=== PATIENT | male | born 1990 | race Caucasian/White ===

== ENCOUNTER 2017-08-16 18:51 | Emergency (ER) | payer OTHER ==
[2017-08-16 19:02] VITALS: BP 130/70; PULSE 69; RESP 18; TEMP 97.1
--- NOTE | 2017-08-16 19:16 | ED ---
ENT HPI - General Chief complaint: ENT Stated complaint: left ear pain Time Seen by Provider: 08/16/17 19:04 Source: patient Mode of arrival: ambulatory Limitations: no limitations - History of Present Illness Initial comments: 27-year-old male patient presented to the emergency department today for complaints of left ear discomfort and congestion. Patient states that he has been sick with upper respiratory symptoms for the last 2 days. Patient states that he occasionally gets a sharp pain in his left ear. He states it feels plugged and he has decreased hearing. Patient states he is also having nasal congestion and clear nasal drainage. He denies any sore throat. Denies any fever or chills. Denies any headaches. Patient denies any recent shortness breath, chest pain, abdominal pain, nausea, vomiting, diarrhea, constipation, back pain, numbness, tingling, headache, visual changes, hematuria, dysuria, urinary frequency, urinary urgency, or any other complaints. - Related Data Allergies Allergy/AdvReac Type Severity Reaction Status Date / Time No Known Allergies Allergy Verified 08/16/17 19:02 Review of Systems ROS Statement: Those systems with pertinent positive or pertinent negative responses have been documented in the HPI. ROS Other: All systems not noted in ROS Statement are negative. Past Medical History Past Medical History: No Reported History History of Any Multi-Drug Resistant Organisms: None Reported Past Surgical History: No Surgical Hx Reported Past Psychological History: No Psychological Hx Reported Smoking Status: Never smoker Past Alcohol Use History: None Reported Past Drug Use History: None Reported General Exam Limitations: no limitations General appearance: alert, in no apparent distress, other (This is a well- developed, well-nourished adult male patient in no acute distress. Vital signs upon presentation her temperature 97.1F, pulse 69, respirations 18, blood pressure 130/70, pulse ox 100% on room air.) Eye exam: Present: normal appearance, PERRL, EOMI. Absent: scleral icterus, conjunctival injection, periorbital swelling ENT exam: Present: normal exam, normal oropharynx, mucous membranes moist, TM's normal bilaterally Neck exam: Present: normal inspection. Absent: tenderness, meningismus, lymphadenopathy Respiratory exam: Present: normal lung sounds bilaterally. Absent: respiratory distress, wheezes, rales, rhonchi, stridor Cardiovascular Exam: Present: regular rate, normal rhythm, normal heart sounds. Absent: systolic murmur, diastolic murmur, rubs, gallop, clicks Neurological exam: Present: alert, oriented X3, CN II-XII intact Psychiatric exam: Present: normal affect, normal mood Skin exam: Present: warm, dry, intact, normal color. Absent: rash Course Vital Signs 08/16/17 18:59 Temperature 97.1 F L Pulse Rate 69 Respiratory 18 Rate Blood Pressure 130/70 O2 Sat by Pulse 100 Oximetry Medical Decision Making - Medical Decision Making 27-year-old male patient presented for evaluation of left ear congestion. Physical exam was unremarkable. Left tympanic membranes was within normal limits, no evidence of infection. Vital signs are stable. Did explain to patient this could be due to increased fluid in the middle ear. He is instructed to obtain [id number] nasal decongestant such as Sudafed. He is instructed to follow-up with his primary care physician for recheck in 1-2 days. He is instructed to return here really for any new, worsening, or concerning symptoms. He verbalizes understanding and agrees with this plan. Disposition Clinical Impression: Upper respiratory infection Disposition: HOME SELF-CARE Condition: Good Instructions: Upper Respiratory Infection (ED), Earache (ED) Additional Instructions: Use [id number] nasal decongestants. Example is Sudafed or anything with pseudoephedrine. Follow up with her primary care physician for reevaluation in one to 2 days. Return here immediately for any new, worsening, or concerning symptoms. Referrals: None,Stated [Primary Care Provider] - 1-2 days Time of Disposition: 19:16
== END 2017-08-16 19:23 | disposition home or self-care (01) ==
LOC: EC 18:51
DX: J06.9 Acute upper respiratory infection, unspecified (principal); H92.02 Otalgia, left ear
CPT/HCPCS: 99282

== ENCOUNTER 2019-12-31 17:52 | Emergency (ER) | payer OTHER ==
--- NOTE | 2019-12-31 18:40 | XR ---
EXAMINATION TYPE: XR chest 2V DATE OF EXAM: 12/31/2019 COMPARISON: NONE HISTORY: Cough and congestion TECHNIQUE: 2 views FINDINGS: Heart and mediastinum are normal. Lungs are clear. Diaphragm is normal. Bony thorax appears normal. IMPRESSION: Normal chest.
[2019-12-31 19:05] VITALS: BP 124/75; PULSE 76; TEMP 98.1
--- NOTE | 2019-12-31 19:28 | ED ---
General Adult HPI - General Chief complaint: Upper Respiratory Infection Stated complaint: Chest congestion Time Seen by Provider: 12/31/19 17:55 Source: patient, RN notes reviewed, old records reviewed Mode of arrival: ambulatory Limitations: no limitations - History of Present Illness Initial comments: Is a 29-year-old male who presents emergency Department stating he's had a slight cough since the beginning of the month. The month he had a low-grade fever but he hasn't had one in quite a while. Patient states he has been exposed to influenza he hasn't had a fever lately. Patient denies any significant short of breath. Patient denies any actual sputum production. Patient denies any chest pain. - Related Data Allergies Allergy/AdvReac Type Severity Reaction Status Date / Time No Known Allergies Allergy Verified 08/16/17 19:02 Review of Systems ROS Statement: Those systems with pertinent positive or pertinent negative responses have been documented in the HPI. ROS Other: All systems not noted in ROS Statement are negative. Past Medical History Past Medical History: No Reported History History of Any Multi-Drug Resistant Organisms: None Reported Past Surgical History: No Surgical Hx Reported Past Psychological History: No Psychological Hx Reported Smoking Status: Never smoker Past Alcohol Use History: None Reported Past Drug Use History: None Reported General Exam - General Exam Comments Initial Comments: GENERAL: Patient is well-developed and well-nourished. Patient is nontoxic and well- hydrated and is in no acute distress. ENT: Neck is soft and supple. No significant lymphadenopathy is noted. Oropharynx is clear. Moist mucous membranes. Neck has full range of motion without eliciting any pain. EYES: The sclera were anicteric and conjunctiva were pink and moist. Extraocular movements were intact and pupils were equal round and reactive to light. Eyelids were unremarkable. PULMONARY: Unlabored respirations. Good breath sounds bilaterally. No audible rales rhonchi or wheezing was noted. CARDIOVASCULAR: There is a regular rate and rhythm without any murmurs gallops or rubs. ABDOMEN: Soft and nontender with normal bowel sounds. SKIN: Skin is clear with no lesions or rashes and otherwise unremarkable. NEUROLOGIC: Patient is alert and oriented x3. Cranial nerves II through XII are grossly intact. Motor and sensory are also intact. Normal speech, volume and content. Symmetrical smile. MUSCULOSKELETAL: Normal extremities with adequate strength and full range of motion. LYMPHATICS: No significant lymphadenopathy is noted PSYCHIATRIC: Normal psychiatric evaluation. Limitations: no limitations Course Vital Signs 12/31/19 12/31/19 17:53 19:04 Temperature 98.6 F 98.1 F Pulse Rate 79 76 Respiratory 18 19 Rate Blood Pressure 138/80 124/75 O2 Sat by Pulse 100 99 Oximetry Disposition Clinical Impression: Acute upper respiratory infection Disposition: HOME SELF-CARE Condition: Good Instructions (If sedation given, give patient instructions): Upper Respiratory Infection (ED) Is patient prescribed a controlled substance at d/c from ED?: No Referrals: Lilli Dorsey MD [Primary Care Provider] - 1-2 days Time of Disposition: 19:28
[2019-12-31 19:48] VITALS: RESP 16
== END 2019-12-31 19:40 | disposition home or self-care (01) ==
LOC: EC 17:52
DX: J06.9 Acute upper respiratory infection, unspecified (principal)
CPT/HCPCS: 71046; 99284

== ENCOUNTER 2021-02-01 10:42 | Emergency (ER) | payer OTHER ==
[2021-02-01 11:02] VITALS: BP 106/70; PULSE 71; RESP 18; TEMP 98.2
[2021-02-01] MEDS ORDERED: ACET/COD 300 MG/30 MG STARTER PACK 6 TAB BTL PO STA (11:24)
[2021-02-01] MEDS ORDERED: HYDROcodone/APAP 5-325MG 1 EACH TAB PO STA (11:24)
--- NOTE | 2021-02-01 11:26 | ED ---
Back Pain HPI - General Chief Complaint: Back Pain/Injury Stated Complaint: back injury Time Seen by Provider: 02/01/21 10:59 Source: patient Mode of arrival: ambulatory Limitations: no limitations - History of Present Illness Initial Comments: This a 30-year-old male presents emergency Department chief complaint low back pain. Patient states he is playing with his daughter on the floor yesterday when he twisted to his right and felt hasn't back tighten up. Patient states his pain today worse with movement better at rest. Denies any lower extremity symptoms including paresthesias, weakness, discoloration. He is able to ambulate with no assistance. Patient has a bowel, bladder incontinence or retention of saddle anesthesias. Patient has no abdominal complaints. Patient states he has a history of scoliosis states she's had injuries like this in the past. - Related Data Previous Rx's Medication Instructions Recorded Cyclobenzaprine [Flexeril] 10 mg PO TID PRN #15 tab 02/01/21 Ibuprofen [Motrin] 600 mg PO Q8HR PRN #20 tab 02/01/21 predniSONE 50 mg PO DAILY #5 tab 02/01/21 Allergies Allergy/AdvReac Type Severity Reaction Status Date / Time No Known Allergies Allergy Verified 02/01/21 10:49 Review of Systems ROS Statement: Those systems with pertinent positive or pertinent negative responses have been documented in the HPI. ROS Other: All systems not noted in ROS Statement are negative. Past Medical History Past Medical History: No Reported History History of Any Multi-Drug Resistant Organisms: None Reported Past Surgical History: No Surgical Hx Reported Additional Past Surgical History / Comment(s): esophageal as new born Past Psychological History: No Psychological Hx Reported Smoking Status: Never smoker Past Alcohol Use History: Occasional Past Drug Use History: Marijuana General Exam Limitations: no limitations General appearance: alert, in no apparent distress Head exam: Present: atraumatic, normocephalic, normal inspection Neck exam: Present: normal inspection, full ROM. Absent: tenderness, meningismus, lymphadenopathy Respiratory exam: Present: normal lung sounds bilaterally. Absent: respiratory distress, wheezes, rales, rhonchi, stridor Cardiovascular Exam: Present: regular rate, normal rhythm, normal heart sounds. Absent: systolic murmur, diastolic murmur, rubs, gallop, clicks GI/Abdominal exam: Present: soft, normal bowel sounds. Absent: distended, tenderness, guarding, rebound, rigid Extremities exam: Present: other (Lower extremity strength equal bilaterally neurovascular intact equal color equal warmth nontender) Back exam: Present: tenderness, muscle spasm, paraspinal tenderness. Absent: full ROM (Pain with range of motion), vertebral tenderness Neurological exam: Present: alert, reflexes normal. Absent: motor sensory deficit Course Vital Signs 02/01/21 10:49 Temperature 98.2 F Pulse Rate 71 Respiratory 18 Rate Blood Pressure 106/70 O2 Sat by Pulse 100 Oximetry Medical Decision Making - Medical Decision Making Patient is a lumbar sprain with no red flag symptoms. Patient's arrest intact will be discharged with muscle relaxers. Return parameters were discussed. Disposition Clinical Impression: Strain of lumbar region Disposition: HOME SELF-CARE Instructions (If sedation given, give patient instructions): Acute Low Back Pain (ED) Additional Instructions: Please return to the Emergency Department if symptoms worsen or any other concerns. Prescriptions: Cyclobenzaprine [Flexeril] 10 mg PO TID PRN #15 tab PRN Reason: Muscle Spasm Ibuprofen [Motrin] 600 mg PO Q8HR PRN #20 tab PRN Reason: Pain predniSONE 50 mg PO DAILY #5 tab Is patient prescribed a controlled substance at d/c from ED?: No Referrals: Renetta Raphael MD [Primary Care Provider] - 1-2 days Time of Disposition: 11:25
== END 2021-02-01 11:45 | disposition home or self-care (01) ==
LOC: EC 10:42
DX: S39.012A Strain of muscle, fascia and tendon of lower back, initial encounter (principal); X50.1XXA Overexertion from prolonged static or awkward postures, initial encounter
CPT/HCPCS: 99283